=== PATIENT | female | born 1945 | race Caucasian/White ===

== ENCOUNTER 2021-02-22 23:00 | Emergency (ER) | payer MEDICARE, OTHER ==
[~2021-02-22] VITALS: Ht 309.9 cm; Wt 87.1 kg
[~2021-02-22 23:00] MED LIST: AMLODIPINE BESYL5 MG PO; HYDROCHLOROTHIA25 MG PO; IRBESARTAN150 MG PO; LEVOTHYROXINE0.5 GM; SYNTHROID50 MCG PO
[2021-02-22] MEDS ORDERED: CLEOCIN HCL150 MG PO (23:18)
[2021-02-22] MEDS ORDERED: TETANUS/DIPHTHERIA TOX ADULT 0.5 ML SYR IM ONE (23:30)
[2021-02-22] MEDS ORDERED: TETANUS/DIPHTHERIA TOX ADULT 0.5 ML SYR ONE (23:32)
== END 2021-02-22 23:40 | disposition home or self-care (01) ==
LOC: ER 23:06
DX: S61.210A Laceration without foreign body of right index finger without damage to nail, initial encounter (principal); W26.0XXA Contact with knife, initial encounter; Y93.G3 Activity, cooking and baking; Y92.000 Kitchen of unspecified non-institutional (private) residence as the place of occurrence of the external cause; Z86.73 Personal history of transient ischemic attack (TIA), and cerebral infarction without residual deficits
CPT/HCPCS: 90471; 90714; 99282